=== PATIENT | male | born 1980 ===

== ENCOUNTER 2018-07-02 22:27 | Emergency (ER) | payer SELFPAY ==
[2018-07-02 22:35] VITALS: BP 114/66; PULSE 88; TEMP 97.4; BMI 26.6
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
== END 2018-07-02 23:26 | disposition home or self-care (01) ==
LOC: FER 22:27
PROC: 0HQFXZZ Repair Right Hand Skin, External Approach (ICD-10-PCS; principal; 2018-07-02)
DX: S61.226A Laceration with foreign body of right little finger without damage to nail, initial encounter (principal); W45.8XXA Other foreign body or object entering through skin, initial encounter; Y93.89 Activity, other specified; Y92.410 Unspecified street and highway as the place of occurrence of the external cause
CPT/HCPCS: 99282-25

== ENCOUNTER 2018-07-16 20:15 | Emergency (ER) | payer SELFPAY ==
[2018-07-16 20:27] VITALS: BP 132/67; PULSE 72; TEMP 98.2; BMI 27.3
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
== END 2018-07-16 21:14 | disposition home or self-care (01) ==
LOC: FER 20:15
DX: Z48.02 Encounter for removal of sutures (principal)
CPT/HCPCS: 99281-25